=== PATIENT | female | born 1985 | race Caucasian/White ===

== ENCOUNTER 2016-05-11 00:22 | Emergency (ER) | payer OTHER ==
[2016-05-11] MEDS ORDERED: ONDANSETRON ODT 4 MG TABLET TL STA (02:57)
[2016-05-11] MEDS ORDERED: ONDANSETRON ODT 4 MG TABLET ONE (03:01)
[2016-05-11] MEDS ORDERED: ONDANSETRON ODT 4 MG Prepack 2 TL ONE (04:11)
== END 2016-05-11 04:23 | disposition home or self-care (01) ==
DX: K52.9 Noninfective gastroenteritis and colitis, unspecified (principal); M06.9 Rheumatoid arthritis, unspecified
CPT/HCPCS: 99283; Q0162

== ENCOUNTER 2020-04-02 08:00 | Outpatient (CLI) | payer OTHER ==
[2020-04-02 18:48] LABS: BASOPHILS # (AUTO) 0.1 10^3/uL (0.0-0.1); BASOPHILS % (AUTO) 0.9 %; EOSINOPHILS # (AUTO) 0.1 10^3/uL (0.0-0.7); EOSINOPHILS % (AUTO) 0.9 %; HGB - HEMOGLOBIN 13.5 g/dL (12.0-16.0); LYMPHOCYTES # (AUTO) 1.7 10^3/uL (1.5-3.5); LYMPHOCYTES % (AUTO) 28.7 %; MEAN CORPUSCULAR HEMOGLOBIN 28.2 pg (27.0-31.0); MEAN CORPUSCULAR HGB CONC 32.1 g/dL (32.0-36.0); MEAN CORPUSCULAR VOLUME 87.9 fL (81.0-99.0); MEAN PLATELET VOLUME 11.4 fL (7.9-10.8); MONOCYTES # (AUTO) 0.5 10^3/uL (0.0-1.0); MONOCYTES % (AUTO) 7.9 %; NEUTROPHILS # (AUTO) 3.6 10^3/uL (1.5-6.6); NEUTROPHILS % (AUTO) 61.1 %; PLT - PLATELET COUNT 245 10^3/uL (130-450); RED BLOOD COUNT 4.78 10^6/uL (4.20-5.40); RED CELL DISTRIBUTION WIDTH 12.7 % (12.0-15.0); WHITE BLOOD COUNT 5.9 x10^3/uL (4.8-10.8)
[2020-04-02 19:29] LABS: ALBUMIN/GLOBULIN RATIO 1.3 (1.0-2.2); BILIRUBIN,TOTAL 0.4 mg/dL (0.2-1.0); CALCIUM 9.2 mg/dL (8.5-10.3); CREATININE 0.9 mg/dL (0.4-1.0)
[2020-04-02 19:40] LABS: FERRITIN 11.8 ng/mL (11.0-306.8)
[2020-04-02 19:43] LABS: FOLATE 5.79 ng/mL (5.90 - >24.8)
== END 2020-04-02 23:59 | disposition home or self-care (01) ==
LOC: LAB.WCP 08:00
PROVIDERS: ATTEND Nurse Practitioner Family
DX: G43.909 Migraine, unspecified, not intractable, without status migrainosus (principal); M79.7 Fibromyalgia; E28.2 Polycystic ovarian syndrome; K90.0 Celiac disease
CPT/HCPCS: 36415; 80053; 82306; 82607; 82728; 82746; 83540; 84443; 84466; 85025

== ENCOUNTER 2021-07-29 12:05 | Outpatient (CLI) | payer OTHER | END 2021-07-29 12:06 | disposition home or self-care (01) | LOC: LAB.N 12:05 | PROVIDERS: ATTEND Family Medicine | DX: N91.2 Amenorrhea, unspecified (principal) | CPT/HCPCS: 36415; 84702 ==

== ENCOUNTER 2021-07-31 12:06 | Outpatient (CLI) | payer OTHER | END 2021-07-31 12:07 | disposition home or self-care (01) | LOC: LAB.N 12:06 | PROVIDERS: ATTEND Family Medicine | DX: Z34.90 Encounter for supervision of normal pregnancy, unspecified, unspecified trimester (principal) | CPT/HCPCS: 36415; 84702 ==

== ENCOUNTER 2021-08-31 19:59 | Emergency (ER) | payer OTHER ==
--- OUTSIDE RECORDS SUMMARY | 2021-08-31 20:05 | EXTERNAL MEDICAL SUMMARY RPT | Continuity of Care Document ---
:1985 Author Organization [facility] Address [address] [place] [address] Phone Care Team Providers Name Role Phone Anastasiya Dong Unavailable Unavailable Allergies No information. Encounters No information. Medications date description facility [id number] Metformin hydrochloride 1000 MG [facility] [id number] Metformin hydrochloride 1000 MG [facility] [id number] Alprazolam 1 MG [facility] Problems date description facility [id number] Encounter for supervision of other norm al , [facility] first t [id number] Other specified abnormal findings of bl ood chemistry [facility] Procedures date description facility [id number] [facility] [id number] [facility] [id number] [facility] Results No information. Vital Signs date measurement value source 20210612 weight_standard 184 lb [id number] weight_metric 83.46 kg 20210612 height_standard 63 in [id number] height_metric 160.02 cm 20210612 heart_rate 78 /min [id number] BP_systolic 122 mm[Hg] 20210612 BP_diastolic 80 mm[Hg] 20210612 BMI 32.5 kg/m2
[2021-08-31 20:36] LABS: BASOPHILS # (AUTO) 0.1 10^3/uL (0.0-0.1); BASOPHILS % (AUTO) 0.5 %; EOSINOPHILS # (AUTO) 0.1 10^3/uL (0.0-0.7); EOSINOPHILS % (AUTO) 0.5 %; HCT - HEMATOCRIT 38.5 % (37.0-47.0); HGB - HEMOGLOBIN 12.7 g/dL (12.0-16.0); LYMPHOCYTES % (AUTO) 17.5 %; MEAN CORPUSCULAR HEMOGLOBIN 27.5 pg (27.0-31.0); MEAN CORPUSCULAR VOLUME 83.3 fL (81.0-99.0); MEAN PLATELET VOLUME 10.4 fL (7.9-10.8); MONOCYTES # (AUTO) 0.9 10^3/uL (0.0-1.0); MONOCYTES % (AUTO) 7.6 %; NEUTROPHILS # (AUTO) 8.4 10^3/uL (1.5-6.6); NEUTROPHILS % (AUTO) 73.6 %; PLT - PLATELET COUNT 212 10^3/uL (130-450); RED BLOOD COUNT 4.62 10^6/uL (4.20-5.40); RED CELL DISTRIBUTION WIDTH 13.9 % (12.0-15.0); WHITE BLOOD COUNT 11.4 x10^3/uL (4.8-10.8)
--- NOTE | 2021-08-31 20:47 | ED Physician Documentation ---
PD HPI FEMALE - Stated complaint Stated Complaint: FEMALE - Chief complaint Chief Complaint: Abd Pain - History obtained from History obtained from: Patient - History of Present Illness Timing - onset: Today Timing - details: Gradual onset, Waxing and waning Associated symptoms: Pelvic pain, Vaginal bleeding. 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 She says her blood type is B positive. 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: Other (PCOS) Musculoskeletal: Rheumatoid arthritis - Past Surgical History Past Surgical History: No - Present Medications Home Medications: Ambulatory Orders Medication Instructions Recorded Confirmed Celecoxib [Celebrex] 50 mg PO PRN PRN 05/11/16 05/11/16 Ondansetron Odt [Zofran] 4 mg TL Q6H PRN #10 tablet 05/11/16 Sumatriptan Succinate [Imitrex] 100 mg PO DAILY 05/11/16 05/11/16 Bacitracin Zinc Oint 1 applic TOP BID #1 tube 12/17/19 - Allergies Allergies/Adverse Reactions: Allergies Allergy/AdvReac Type Severity Reaction Status Date / Time aspirin Allergy Anaphylaxis Verified 08/31/21 20:05 cephalexin monohydrate * Allergy Hives Verified 08/31/21 20:05 [From Keflex] codeine Allergy Hives Verified 08/31/21 20:05 egg Allergy Unknown Verified 08/31/21 20:05 guaifenesin Allergy Hives Verified 08/31/21 20:05 Penicillins Allergy Hives Verified 08/31/21 20:05 - Social History Does the pt smoke?: No Smoking Status: Never smoker Does the pt drink ETOH?: Yes Does the pt have substance abuse?: No - Immunizations Immunizations are current?: Yes PD ED PE NORMAL - Vitals Vital signs reviewed: Yes - General General: Alert and oriented X 3, Well developed/nourished, Other (tearful at times during H+P) - Cardiac Cardiac: No murmur - Respiratory Respiratory: No respiratory distress, Clear bilaterally - Abdomen Abdomen: Soft, Non tender - Back Back: No CVA TTP PD ED PE EXPANDED - Cardiac Cardiac: Tachy, Regular Rhythm - Female Female : Vaginal Bleeding, Farebox Repairer present, Other (small amount of blood with clots in posterior vagina with small clots removed from cervical OS. no active bleeding noted). No: Tissue present Results - Vitals Vitals: Vital Signs - 24 hr 08/31/21 08/31/21 08/31/21 20:03 20:05 22:04 Temperature 36.8 C 36.8 C Heart Rate 115 H 115 H 80 Respiratory 20 20 20 Rate Blood Pressure 131/75 H 131/75 H 131/77 H O2 Saturation 99 99 98 09/01/21 09/01/21 00:12 00:30 Temperature Heart Rate 81 Respiratory 16 16 Rate Blood Pressure 119/76 O2 Saturation 98 Oxygen O2 Source Room air - Labs Labs: Laboratory Tests 08/31/21 08/31/21 08/31/21 20:25 20:25 20:25 WBC 11.4 H RBC 4.62 Hgb 12.7 Hct 38.5 MCV 83.3 MCH 27.5 MCHC 33.0 RDW 13.9 Plt Count 212 MPV 10.4 Neut # (Auto) 8.4 H Lymph # (Auto) 2.0 Teller # (Auto) 0.9 Eos # (Auto) 0.1 Baso # (Auto) 0.1 Absolute Nucleated RBC 0.00 Nucleated RBC % 0.0 Sodium 135 Potassium 3.7 Chloride 103 Carbon Dioxide 23 Anion Gap 9.0 BUN 8 Creatinine 0.6 Estimated GFR (MDRD) 114 Glucose 111 H Calcium 9.4 Total Bilirubin 0.5 AST 16 ALT 13 Alkaline Phosphatase 56 Total Protein 6.9 Albumin 3.9 Globulin 3.0 Albumin/Globulin Ratio 1.3 Lipase 31 HCG, Quant Blood Type B POSITIVE 08/31/21 20:25 WBC RBC Hgb Hct MCV MCH MCHC RDW Plt Count MPV Neut # (Auto) Lymph # (Auto) Teller # (Auto) Eos # (Auto) Baso # (Auto) Absolute Nucleated RBC Nucleated RBC % Sodium Potassium Chloride Carbon Dioxide Anion Gap BUN Creatinine Estimated GFR (MDRD) Glucose Calcium Total Bilirubin AST ALT Alkaline Phosphatase Total Protein Albumin Globulin Albumin/Globulin Ratio Lipase HCG, Quant 98727.00 Blood Type - Rads (name of study) first trimester US Radiology: Prelim report reviewed, See rad report PD MEDICAL DECISION MAKING - ED course Complexity details: reviewed results, re-evaluated patient, considered differential, d/w patient ED course: Presents with vaginal bleeding and suprapubic cramping in setting of first trimester . US interpreted by radiologist as follows: IMPRESSION: 1. No evidence of intrauterine . 2. Mobile, avascular, heterogeneous intrauterine material is likely result of spontaneous in progress. 3. Right ovarian corpus luteum. 4. Ectopic is not visible but clinical follow-up with beta hCG levels is recommended. Also, radiologist's interpretation includes: There is no intrauterine gestational sac visible. The endometrium is diffusely thickened at about 1.9 cm and contains a vascular heterogeneous material with multiple debris and an irregular area of central fluid. The cervix is partially open and contains a similar heterogeneous material. Patient is given 1 tablets vicodin for the cramping discomfort. After test results (including US) are available, I discussed results with patient and then performed pelvic exam and, as documented above, was able to retrieve some clots from cervical os. She was observed for approximately 30 more minutes and reported feeling much improved and comfortable with d/c home. Departure - Departure Disposition: 01 Home, Self Care Clinical Impression: Spontaneous miscarriage Condition: Good Instructions: ED Miscarriage Incom Comments: Your ultrasound does not show any evidence of viable ; there was some material (likely blood with clots) noted in the uterus and in the cervix, along with the cervix appearing to be open on the ultrasound. These findings are consistent with an incomplete miscarriage (there is still some material that hasn't been expelled, and the cervix closes once the miscarriage is complete). At this point, the most likely outcome is that the rest of the material will be expelled from the uterus without complication. 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 They will likely want to follow the blood tests (HCG level) until it reaches zero. Please return to the emergency department if you have increasing pain or bleeding, or new concerning signs/symptoms such as fever or lightheadedness. I am prescribing a short course of narcotic pain medication for you. These are potentially dangerous and addictive medications that should be used carefully. These medications may constipate you. Take an [id number] stool softener (docusate) twice daily with plenty of water while taking these medications. If you go 24 hours without a bowel movement, take [id number] miralax, per package instructions. Do not drink or drive while taking these medications. If you received narcotic or sedating medications while in the emergency department, do not drive for 24 hours. Store this medication in a safe, secure place and out of reach of children. It is a violation of federal law to give or sell this medication to another person or to use in a manner other than prescribed. The ED will not refill narcotic prescriptions, including prescriptions lost or stolen. To dispose of unwanted medications: 1. [facility] at [address] in [place] has a medication drop box. They accept prescription medications (in pill form) Tuesday through Tuesday 9:00 a.m. to 5:00 p.m. 2. The [facility] [employer] accepts prescription medications (in pill form only) for disposal year round. Call for more information. 3. Contact the [facility] for the next [facility] sponsored prescription drug collection event. , [phone], or [phone]; Discharge Date/Time: 09/01/21 00:31
[2021-08-31 20:48] LABS: ALBUMIN 3.9 g/dL (3.2-5.5); ALBUMIN/GLOBULIN RATIO 1.3 (1.0-2.2); BILIRUBIN,TOTAL 0.5 mg/dL (0.2-1.0); CALCIUM 9.4 mg/dL (8.5-10.3); CREATININE 0.6 mg/dL (0.4-1.0); POTASSIUM 3.7 mmol/L (3.5-5.0); TOTAL PROTEIN 6.9 g/dL (6.7-8.2)
--- NOTE | 2021-08-31 22:46 | Ultrasound Report ---
PROCEDURE: OB First Trimester w/TV INDICATIONS: approximately 9 weeks , vag. bleeding OUTSIDE/PRIOR DATING DATA: Last menstrual period (LMP): 06/24/2021. LMP-based estimated date of delivery (BETH): 03/31/2022. First dating scan (date and location): Current study. Estimated date of delivery (BETH) from first dating scan: Not applicable. TECHNIQUE: Real-time scanning was performed of the fetus and maternal pelvic organs, with image documentation. Endovaginal scanning was also performed to better visualize the fetus and maternal ovaries. COMPARISON: None FINDINGS: Anteverted maternal uterus. There is no intrauterine gestational sac visible. The endometrium is diff usely thickened at about 1.9 cm and contains a vascular heterogeneous material with multiple debris a nd an irregular area of central fluid. The cervix is partially open and contains a similar heterogene ous material. There is a corpus luteum on the right ovary. Left ovary has a normal echotexture. No suspicious adnex al masses. No free fluid in the pelvis. IMPRESSION: 1. No evidence of intrauterine . 2. Mobile, avascular, heterogeneous intrauterine material is likely result of spontaneous in progress. 3. Right ovarian corpus luteum. 4. Ectopic is not visible but clinical follow-up with beta hCG levels is recommended. Reviewed by: Denisa Birmingham MD on 08/31/2021 10:45 PM PDT Approved by: Denisa Birmingham MD on 08/31/2021 10:45 PM PDT Station ID: [id number]
[2021-08-31] MEDS: HYDROcod/ACETAM 5/325 MG TABLET PO STA (23:22)
[2021-09-01 00:13] VITALS: BP 119/76
[2021-09-01] MEDS: HYDROcod/ACET 5/325 Prepack 4 PO STA (00:22)
== END 2021-09-01 00:31 | disposition home or self-care (01) ==
LOC: ED 19:59
DX: O03.9 Complete or unspecified spontaneous abortion without complication (principal); Z3A.01 Less than 8 weeks gestation of pregnancy
CPT/HCPCS: 36415; 76801; 76817; 80053; 83690; 84702; 85025; 86900; 86901; 99282; 99284; A9270